=== PATIENT | female | born 1960 | race Caucasian/White ===

== ENCOUNTER 2020-07-11 12:15 | Emergency (ER) | payer MEDICAID ==
[~2020-07-11] VITALS: Ht 162.6 cm; Wt 54.0 kg
[2020-07-11 13:35] LABS: CHLORIDE 99 mEq/L (98-107)
[2020-07-11 13:39] LABS: INR 1.4; PROTHROMBIN TIME 14.9 sec (9.6-11.0)
[2020-07-11 13:41] LABS: MEAN CORPUSCULAR HEMOGLOBIN 21.6 pg (28.0-32.0); MEAN CORPUSCULAR VOLUME 65.9 fL (81.0-99.0); MEAN PLATELET VOLUME 6.5 fl (7.4-10.4); RED BLOOD CELL COUNT 2.64 mill/uL (4.2-5.4); RED CELL DISTRIBUTION WIDTH 19.3 % (11.6-14.6)
[2020-07-11 13:43] LABS: HEMATOCRIT. 17.4 % (36.0-48.0); HEMOGLOBIN. 5.7 g/dL (12.0-16.0); PLATELET 1083 x1000/uL (130-400)
[2020-07-11 15:02] LABS: PLATELET ESTIMATE MARKEDLY INCREASED
[2020-07-11] MEDS ORDERED: IOHEXOL-300 100 ML BOTTLE ONE (15:28)
[2020-07-11 15:45] VITALS: BP 131/75
== END 2020-07-11 15:55 | disposition home or self-care (01) ==
LOC: ER 12:42
DX: J18.9 Pneumonia, unspecified organism (principal); R91.8 Other nonspecific abnormal finding of lung field; D64.9 Anemia, unspecified; J44.9 Chronic obstructive pulmonary disease, unspecified; Z88.0 Allergy status to penicillin
CPT/HCPCS: 36415; 71045; 71260; 80053; 83880; 85025; 85610; 99285; Q9967

== ENCOUNTER 2021-06-04 20:24 | Inpatient (IN) | payer MEDICAID, OTHER ==
[~2021-06-04] VITALS: Ht 162.6 cm; Wt 67.3 kg
[~2021-06-04 20:24] MED LIST: AMLO5TAB88 PO; DICY20TA11 MT; ESCI20TA PO; GABA-290 MT; HYDR50SY PO; QUET50TA PO
[2021-06-04] MEDS ORDERED: AZITHROMYCIN 500MG/250ML 250 ML IV ONE (20:45)
[2021-06-04] MEDS ORDERED: CEFTRIAXONE 1 G PREMIX 50 ML IV ONE (20:45)
[2021-06-04] MEDS ORDERED: SODIUM CHLORIDE 0.9% 1000ML BAG (SEPSIS BOLUS) IV ONE (20:45)
[2021-06-04 21:01] LABS: HEMATOCRIT. 32.4 % (36.0-48.0); HEMOGLOBIN. 11.2 g/dL (12.0-16.0); MEAN CORPUSCULAR HEMOGLOBIN 27.3 pg (28.0-32.0); MEAN CORPUSCULAR VOLUME 79.2 fL (81.0-99.0); PLATELET 728 x1000/uL (130-400); RED BLOOD CELL COUNT 4.09 mill/uL (4.2-5.4); RED CELL DISTRIBUTION WIDTH 24.4 % (11.6-14.6)
[2021-06-04 21:07] LABS: CHLORIDE 99 mEq/L (98-107)
[2021-06-04 21:11] LABS: D-DIMER 0.83 mg/L FEU (<0.50); INR 1.4; PROTHROMBIN TIME 14.5 sec (9.6-11.0)
[2021-06-04] MEDS ORDERED: SODIUM CHLORIDE 0.9% 1,000 ML IV ONE (21:15)
[2021-06-04] MEDS ORDERED: DILTIAZEM HCL 5MG/ML 5ML VIAL IV ONE (21:30)
[2021-06-04 21:38] LABS: PLATELET ESTIMATE INCREASED
[2021-06-04] MEDS ORDERED: ONDANSETRON HCL 4MG/2ML INJ IV ONE (21:45)
[2021-06-04] MEDS ORDERED: METOCLOPRAMIDE HCL 10MG/2ML VIAL IV ONE (22:15)
[2021-06-04] MEDS ORDERED: MORPHINE SULFATE 4 MG/ML CPJ (NOT FOR IM USE) IV ONE (22:15)
[2021-06-05] VITALS (8 sets, daily range): BP systolic 93–139; BP diastolic 50–82
[2021-06-05] MEDS ORDERED: NALOXONE HCL 0.4MG/ML VIAL IV PRN (03:45)
[2021-06-05] MEDS ORDERED: IOHEXOL-350 100 ML BOTTLE ONE (04:43)
[2021-06-05] MEDS ORDERED: DILTIAZEM HCL 5MG/ML 5ML VIAL IV NR (06:00)
[2021-06-05] MEDS: ONDANSETRON HCL 4MG/2ML INJ IV PRN ×2 (06:14→19:10)
[2021-06-05] MEDS: DICYCLOMINE HCL 20MG TABLET PO SCH ×3 (08:18→17:15)
[2021-06-05] MEDS: AMLODIPINE 5MG TABLET PO SCH (08:18)
[2021-06-05] MEDS: HYDROCODONE/ACETAMINOPHEN 5/325MG TABLET PO PRN ×3 (08:27→20:59)
[2021-06-05 08:45] LABS: HEMATOCRIT. 30.7 % (36.0-48.0); MEAN CORPUSCULAR HEMOGLOBIN 25.6 pg (28.0-32.0); MEAN CORPUSCULAR VOLUME 78.7 fL (81.0-99.0); PLATELET 696 x1000/uL (130-400); RED CELL DISTRIBUTION WIDTH 23.9 % (11.6-14.6)
[2021-06-05 08:58] LABS: CHLORIDE 101 mEq/L (98-107)
[2021-06-05] MEDS ORDERED: ENOXAPARIN 40MG/0.4ML SYR SUBCUT SCH (09:00)
[2021-06-05 09:07] LABS: LDL CHOLESTEROL 67 mg/dL (5-100)
[2021-06-05 09:09] LABS: HDL CHOLESTEROL 39 mg/dL (40-59)
[2021-06-05] MEDS: SODIUM CHLORIDE 0.9% 1,000 ML IV SCH (10:58)
[2021-06-05] MEDS ORDERED: DILTIAZEM HCL 30MG TABLET PO SCH (11:00)
[2021-06-05] MEDS ORDERED: VANCOMYCIN 1 G PREMIX 200 ML IV SCH (14:15)
[2021-06-05] MEDS: DILTIAZEM HCL 60MG TABLET PO SCH (18:14)
[2021-06-05 19:23] LABS: PLATELET ESTIMATE INCREASED
[2021-06-05] MEDS: CEFTRIAXONE 1,000 MG in DEXTROSE 5% WATER 50 ML IV SCH (19:52)
[2021-06-05] MEDS ORDERED: CEFTRIAXONE 1,000 MG in DEXTROSE 5% WATER 50 ML IV SCH (20:00)
[2021-06-05] MEDS ORDERED: CEFTRIAXONE 500 MG in DEXTROSE 5% WATER 50 ML IV SCH (20:00)
[2021-06-05 20:22] LABS: CLARITY URINE CLEAR (CLEAR); COLOR URINE YELLOW (YELLOW); KETONES URINE NEGATIVE (NEGATIVE); LEUKOCYTE ESTERASE URINE NEGATIVE (NEGATIVE); NITRITE URINE NEGATIVE (NEGATIVE); OCCULT BLOOD URINE TRACE (NEGATIVE); PH URINE 6.5 (4.5-8.0); PROTEIN URINE 1+ (NEGATIVE); SPECIFIC GRAVITY URINE 1.028 (1.005-1.030); UROBILINOGEN URINE 0.2 E.U./dL (0.2-1.0)
[2021-06-05 20:49] LABS: *BENZODIAZEPINES SCREEN URINE NEGATIVE (NEGATIVE); *COCAINE SCREEN URINE NEGATIVE (NEGATIVE); METHADONE URINE SCREEN NEGATIVE (NEGATIVE); OPIATES URINE SCREEN PRESUMTIVE POSITIVE (NEGATIVE)
[2021-06-05 20:50] LABS: *AMPHETAMINES SCREEN URINE NEGATIVE (NEGATIVE); *BARBITURATES SCREEN URINE NEGATIVE (NEGATIVE); PHENCYCLIDINE URINE SCREEN NEGATIVE (NEGATIVE)
[2021-06-05 20:59] LABS: CANNABINOID URINE SCREEN PRESUMTIVE POSITIVE (NEGATIVE)
[2021-06-05] MEDS ORDERED: AZITHROMYCIN 250 MG in DEXT 5% WATER 250 ML IV SCH (21:00)
[2021-06-05] MEDS: AZITHROMYCIN 500MG in DEXTROSE 5% WATER 250ML IV SCH (21:08)
[2021-06-05] MEDS: QUETIAPINE FUMARATE 50MG TABLET PO SCH (21:08)
[2021-06-06] MEDS: IPRATROPIUM BROMIDE (0.02%) 0.5MG/2.5ML NEB HHN SCH ×3 (01:07→21:10)
[2021-06-06 02:00] VITALS: BP 102/69
[2021-06-06] MEDS: SODIUM CHLORIDE 0.9% 1,000 ML IV SCH ×2 (02:54→20:26)
[2021-06-06] MEDS: DILTIAZEM HCL 60MG TABLET PO SCH ×3 (03:06→21:38)
[2021-06-06] MEDS: HYDROCODONE/ACETAMINOPHEN 5/325MG TABLET PO PRN ×3 (03:06→20:19)
[2021-06-06 08:00] VITALS: BP 117/70
[2021-06-06] MEDS: DICYCLOMINE HCL 20MG TABLET PO SCH ×3 (08:56→17:29)
[2021-06-06] MEDS: AMLODIPINE 5MG TABLET PO SCH (08:56)
[2021-06-06 09:53] VITALS: BP 107/60
[2021-06-06 11:16] LABS: HEMATOCRIT. 25.8 % (36.0-48.0); HEMOGLOBIN. 8.5 g/dL (12.0-16.0); MEAN CORPUSCULAR HEMOGLOBIN 26.2 pg (28.0-32.0); MEAN CORPUSCULAR VOLUME 79.7 fL (81.0-99.0); MEAN PLATELET VOLUME 7.6 fl (7.4-10.4); PLATELET 591 x1000/uL (130-400); RED BLOOD CELL COUNT 3.24 mill/uL (4.2-5.4); RED CELL DISTRIBUTION WIDTH 24.1 % (11.6-14.6)
[2021-06-06 11:25] LABS: CHLORIDE 103 mEq/L (98-107)
[2021-06-06] MEDS ORDERED: SODIUM BICARBONATE 4% (2.4MEQ) 5ML VIAL IV ONE (11:51)
[2021-06-06 14:00] VITALS: BP 116/72
[2021-06-06] MEDS: BUDESONIDE 0.5MG/2ML NEB HHN SCH ×2 (14:34→21:10)
[2021-06-06 15:50] VITALS: BP 114/53
[2021-06-06 19:19] LABS: PLATELET ESTIMATE INCREASED
[2021-06-06] MEDS: CEFTRIAXONE 1,000 MG in DEXTROSE 5% WATER 50 ML IV SCH (20:17)
[2021-06-06] MEDS: QUETIAPINE FUMARATE 50MG TABLET PO SCH (21:01)
[2021-06-06] MEDS: AZITHROMYCIN 500MG in DEXTROSE 5% WATER 250ML IV SCH (21:01)
[2021-06-06] MEDS: ONDANSETRON HCL 4MG/2ML INJ IV PRN (21:01)
[2021-06-06 22:00] VITALS: BP_SYST 108; BP_SYST 135; BP_DIAS 62; BP_DIAS 82
[2021-06-07] VITALS (12 sets, daily range): BP systolic 108–137; BP diastolic 56–82
[2021-06-07] MEDS: DILTIAZEM HCL 60MG TABLET PO SCH (05:52)
[2021-06-07] MEDS: ONDANSETRON HCL 4MG/2ML INJ IV PRN ×2 (05:52→19:35)
[2021-06-07] MEDS: IPRATROPIUM BROMIDE (0.02%) 0.5MG/2.5ML NEB HHN SCH ×3 (07:34→21:04)
[2021-06-07] MEDS: BUDESONIDE 0.5MG/2ML NEB HHN SCH ×2 (07:35→21:04)
[2021-06-07 08:42] LABS: HEMATOCRIT. 24.2 % (36.0-48.0); HEMOGLOBIN. 8.1 g/dL (12.0-16.0); MEAN CORPUSCULAR VOLUME 77.9 fL (81.0-99.0); MEAN PLATELET VOLUME 7.5 fl (7.4-10.4); PLATELET 576 x1000/uL (130-400); RED CELL DISTRIBUTION WIDTH 23.9 % (11.6-14.6)
[2021-06-07 08:52] LABS: CHLORIDE 102 mEq/L (98-107)
[2021-06-07] MEDS: SODIUM CHLORIDE 0.9% 1,000 ML IV SCH (09:18)
[2021-06-07] MEDS: DICYCLOMINE HCL 20MG TABLET PO SCH ×3 (09:21→16:46)
[2021-06-07] MEDS: AMLODIPINE 5MG TABLET PO SCH (09:22)
[2021-06-07] MEDS: HYDROCODONE/ACETAMINOPHEN 5/325MG TABLET PO PRN ×2 (09:24→17:05)
[2021-06-07] MEDS: METHYLPREDNISOLONE SOD SUCC 40 MG/ML VIAL IV SCH ×2 (12:35→19:35)
[2021-06-07] MEDS: DILTIAZEM HCL 90MG TABLET PO SCH ×2 (14:24→21:34)
[2021-06-07] MEDS: CEFTRIAXONE 1,000 MG in DEXTROSE 5% WATER 50 ML IV SCH (19:35)
[2021-06-07] MEDS: QUETIAPINE FUMARATE 50MG TABLET PO SCH (20:10)
[2021-06-07] MEDS: AZITHROMYCIN 500MG in DEXTROSE 5% WATER 250ML IV SCH (20:10)
[2021-06-08] VITALS (11 sets, daily range): BP systolic 104–154; BP diastolic 60–86
[2021-06-08] MEDS: IPRATROPIUM BROMIDE (0.02%) 0.5MG/2.5ML NEB HHN SCH ×4 (01:57→19:47)
[2021-06-08] MEDS: METHYLPREDNISOLONE SOD SUCC 40 MG/ML VIAL IV SCH ×3 (04:43→20:11)
[2021-06-08] MEDS: SODIUM CHLORIDE 0.9% 1,000 ML IV SCH (04:44)
[2021-06-08 05:34] LABS: PLATELET ESTIMATE INCREASED
[2021-06-08] MEDS: DILTIAZEM HCL 90MG TABLET PO SCH ×3 (05:41→22:25)
[2021-06-08] MEDS: HYDROCODONE/ACETAMINOPHEN 5/325MG TABLET PO PRN ×3 (06:10→21:37)
[2021-06-08] MEDS: BUDESONIDE 0.5MG/2ML NEB HHN SCH (07:45)
[2021-06-08 08:54] LABS: HEMATOCRIT. 26.3 % (36.0-48.0); HEMOGLOBIN. 8.7 g/dL (12.0-16.0); MEAN CORPUSCULAR HEMOGLOBIN 25.9 pg (28.0-32.0); MEAN CORPUSCULAR VOLUME 78.1 fL (81.0-99.0); MEAN PLATELET VOLUME 7.3 fl (7.4-10.4); PLATELET 644 x1000/uL (130-400); RED BLOOD CELL COUNT 3.37 mill/uL (4.2-5.4); RED CELL DISTRIBUTION WIDTH 24.2 % (11.6-14.6)
[2021-06-08] MEDS: DICYCLOMINE HCL 20MG TABLET PO SCH ×4 (08:54→17:47)
[2021-06-08 09:02] LABS: CHLORIDE 105 mEq/L (98-107)
[2021-06-08 14:02] LABS: BG BASE EXCESS 3.5 mmol/L (-2.0-2.0); BG CARBOXYHEMOGLOBIN 0.6 % (0.5-1.5); BG DEOXYHEMOGLOBIN 9.7 % (0.0-5.0); BG FRACTION INSPIRED OXYGEN 28; BG HCO3 ACT 26.7 mmol/L (22.0-26.0); BG METHEMOGLOBIN 0.3 % (0.0-1.5); BG OXYGEN SATURATION 90.2 % (92.0-98.5); BG OXYHEMOGLOBIN 89.4 % (94.0-97.0); BG PCO2 35.3 mmHg (35.0-45.0); BG PH 7.497 (7.350-7.450); BG PO2 56.5 mmHg (75.0-100.0); BG SAMPLE SITE RIGHT RADIAL; BG TOTAL HEMOGLOBIN 9.6 g/dL (12.0-18.0); BG VENT MODE NASAL CANNULA
[2021-06-08 17:06] LABS: PLATELET ESTIMATE INCREASED
[2021-06-08] MEDS: QUETIAPINE FUMARATE 50MG TABLET PO SCH (20:11)
[2021-06-08] MEDS: CEFTRIAXONE 1,000 MG in DEXTROSE 5% WATER 50 ML IV SCH (20:11)
[2021-06-08] MEDS: ONDANSETRON HCL 4MG/2ML INJ IV PRN (20:15)
[2021-06-08] MEDS: AZITHROMYCIN 500MG in DEXTROSE 5% WATER 250ML IV SCH (21:37)
[2021-06-09] VITALS (11 sets, daily range): BP systolic 115–164; BP diastolic 71–99
[2021-06-09] MEDS: IPRATROPIUM BROMIDE (0.02%) 0.5MG/2.5ML NEB HHN SCH ×4 (02:15→21:12)
[2021-06-09] MEDS: METHYLPREDNISOLONE SOD SUCC 40 MG/ML VIAL IV SCH ×3 (04:08→20:21)
[2021-06-09] MEDS: DILTIAZEM HCL 90MG TABLET PO SCH ×3 (06:02→22:25)
[2021-06-09] MEDS: DICYCLOMINE HCL 20MG TABLET PO SCH ×3 (08:13→17:46)
[2021-06-09 08:29] LABS: HEMATOCRIT. 27.3 % (36.0-48.0); HEMOGLOBIN. 8.8 g/dL (12.0-16.0); MEAN CORPUSCULAR HEMOGLOBIN 25.4 pg (28.0-32.0); MEAN CORPUSCULAR VOLUME 78.6 fL (81.0-99.0); MEAN PLATELET VOLUME 7.1 fl (7.4-10.4); PLATELET 767 x1000/uL (130-400); RED BLOOD CELL COUNT 3.47 mill/uL (4.2-5.4); RED CELL DISTRIBUTION WIDTH 24.1 % (11.6-14.6)
[2021-06-09] MEDS: BUDESONIDE 0.5MG/2ML NEB HHN SCH (09:00)
[2021-06-09 09:21] LABS: CHLORIDE 106 mEq/L (98-107)
[2021-06-09 14:36] LABS: PLATELET ESTIMATE INCREASED
[2021-06-09] MEDS: HYDROCODONE/ACETAMINOPHEN 5/325MG TABLET PO PRN ×2 (14:48→22:56)
[2021-06-09] MEDS: CEFEPIME 2,000 MG in DEXT 5% WATER 100 ML IV SCH (18:22)
[2021-06-09] MEDS: ONDANSETRON HCL 4MG/2ML INJ IV PRN (18:30)
[2021-06-09] MEDS: AZITHROMYCIN 500MG in DEXTROSE 5% WATER 250ML IV SCH (22:24)
[2021-06-09] MEDS: QUETIAPINE FUMARATE 50MG TABLET PO SCH (22:25)
[2021-06-10] VITALS (9 sets, daily range): BP systolic 111–146; BP diastolic 55–91
[2021-06-10] MEDS: METHYLPREDNISOLONE SOD SUCC 40 MG/ML VIAL IV SCH ×2 (03:17→12:56)
[2021-06-10] MEDS: CEFEPIME 2,000 MG in DEXT 5% WATER 100 ML IV SCH ×3 (03:17→18:00)
[2021-06-10] MEDS: DILTIAZEM HCL 90MG TABLET PO SCH ×2 (05:17→12:57)
[2021-06-10 07:28] LABS: HEMATOCRIT. 26.2 % (36.0-48.0); HEMOGLOBIN. 8.5 g/dL (12.0-16.0); MEAN CORPUSCULAR HEMOGLOBIN 25.5 pg (28.0-32.0); MEAN CORPUSCULAR VOLUME 78.3 fL (81.0-99.0); MEAN PLATELET VOLUME 6.9 fl (7.4-10.4); PLATELET 804 x1000/uL (130-400); RED BLOOD CELL COUNT 3.34 mill/uL (4.2-5.4); RED CELL DISTRIBUTION WIDTH 24.6 % (11.6-14.6)
[2021-06-10] MEDS: DICYCLOMINE HCL 20MG TABLET PO SCH ×3 (08:25→17:00)
[2021-06-10] MEDS: IPRATROPIUM BROMIDE (0.02%) 0.5MG/2.5ML NEB HHN SCH ×2 (09:50→14:41)
[2021-06-10] MEDS ORDERED: LEVO750T46 MT (10:14)
[2021-06-10 10:33] LABS: CHLORIDE 105 mEq/L (98-107)
[2021-06-10] MEDS: ONDANSETRON HCL 4MG/2ML INJ IV PRN (10:44)
[2021-06-10] MEDS ORDERED: HYDROCODONE/ACETAMINOPHEN 5/325MG TABLET PO PRN (13:00)
[2021-06-10] MEDS ORDERED: NALOXONE HCL 0.4MG/ML VIAL IV PRN (13:15)
[2021-06-10] MEDS ORDERED: GABAPENTIN 300MG CAPSULE PO SCH (14:00)
[2021-06-10] MEDS ORDERED: P20 MT (14:30)
[2021-06-10 17:56] LABS: PLATELET ESTIMATE MARKEDLY INCREASED
== END 2021-06-10 19:00 | disposition home or self-care (01) | DRG 720 ==
LOC: ER 20:24 → 3WST 23:13
PROVIDERS: ADMIT Internal Medicine; ATTEND Internal Medicine
PROC: 0W9B3ZZ Drainage of Left Pleural Cavity, Percutaneous Approach (ICD-10-PCS; principal; 2021-06-06)
DX: A41.9 Sepsis, unspecified organism (principal); J96.01 Acute respiratory failure with hypoxia; J91.8 Pleural effusion in other conditions classified elsewhere; E43 Unspecified severe protein-calorie malnutrition; J18.9 Pneumonia, unspecified organism; C34.92 Malignant neoplasm of unspecified part of left bronchus or lung; C78.7 Secondary malignant neoplasm of liver and intrahepatic bile duct; F17.210 Nicotine dependence, cigarettes, uncomplicated; D50.9 Iron deficiency anemia, unspecified; I10 Essential (primary) hypertension; I16.0 Hypertensive urgency; Z20.822 Contact with and (suspected) exposure to COVID-19; R65.20 Severe sepsis without septic shock; J43.9 Emphysema, unspecified; R73.03 Prediabetes; R73.9 Hyperglycemia, unspecified; R59.0 Localized enlarged lymph nodes; Z79.899 Other long term (current) drug therapy; Z71.6 Tobacco abuse counseling; Z68.25 Body mass index [BMI] 25.0-25.9, adult; R00.0 Tachycardia, unspecified
CPT/HCPCS: 32555; 36415; 36600; 71045; 71275; 76700; 80048; 80053; 80061; 80305; 81003; 82040; 82375; 82378; 82805; 83036; 83605; 83615; 83880; 84145; 84443; 84484; 85025; 85379; 86850; 86900; 87426; 88108; 88312; 93005; 93306; 94640; 99291; J0456; J0692; J0696; J1650; J2270; J2405; J2765; J2920; J3490; J7030; J7040; J7060; J7626; Q9967

== ENCOUNTER 2022-01-07 10:02 | Emergency (ER) | payer MEDICAID, OTHER ==
[~2022-01-07] VITALS: Ht 170.2 cm; Wt 62.0 kg
[~2022-01-07 10:02] MED LIST changes: -AMLO5TAB88 PO; -HYDR50SY PO; +LEVO750T46 MT; +P20 MT
[2022-01-07] MEDS ORDERED: MORPHINE SULFATE 4 MG/ML CPJ (NOT FOR IM USE) IV STA (10:35)
[2022-01-07 10:52] LABS: HEMATOCRIT. 32.2 % (36.0-48.0); HEMOGLOBIN. 10.4 g/dL (12.0-16.0); MEAN CORPUSCULAR VOLUME 71.3 fL (81.0-99.0); MEAN PLATELET VOLUME 6.8 fl (7.4-10.4); PLATELET 887 x1000/uL (130-400); RED BLOOD CELL COUNT 4.51 mill/uL (4.2-5.4); RED CELL DISTRIBUTION WIDTH 18.4 % (11.6-14.6)
[2022-01-07 11:02] LABS: CHLORIDE 104 mEq/L (98-107)
[2022-01-07 11:21] LABS: PLATELET ESTIMATE INCREASED
[2022-01-07] MEDS ORDERED: VANCOMYCIN 1G PREMIX 200 ML IV ONE (11:30)
[2022-01-07] MEDS ORDERED: SODIUM CHLORIDE 0.9% 1000ML BAG (SEPSIS BOLUS) IV NR (11:30)
[2022-01-07] MEDS ORDERED: VANCOMYCIN 1GM PMX (XELLIA) 200 ML IV NR (12:00)
[2022-01-07] MEDS ORDERED: CEFEPIME 1,000 MG in DEXTROSE 5% WATER 50 ML IV SCH (12:00)
[2022-01-07] MEDS ORDERED: KETOROLAC 15MG/ML VIAL IV ONE (14:30)
[2022-01-07] MEDS ORDERED: ONDANSETRON HCL 4MG/2ML INJ IV ONE (14:30)
[2022-01-07 14:34] LABS: CLARITY URINE CLOUDY (CLEAR); COLOR URINE YELLOW (YELLOW); KETONES URINE 1+ (NEGATIVE); LEUKOCYTE ESTERASE URINE 1+ (NEGATIVE); NITRITE URINE NEGATIVE (NEGATIVE); OCCULT BLOOD URINE NEGATIVE (NEGATIVE); PH URINE 8.5 (4.5-8.0); PROTEIN URINE 2+ (NEGATIVE); SPECIFIC GRAVITY URINE 1.023 (1.005-1.030); UROBILINOGEN URINE 0.2 E.U./dL (0.2-1.0)
[2022-01-07 14:56] LABS: *AMPHETAMINES SCREEN URINE NEGATIVE (NEGATIVE); *BARBITURATES SCREEN URINE NEGATIVE (NEGATIVE); *BENZODIAZEPINES SCREEN URINE NEGATIVE (NEGATIVE); *COCAINE SCREEN URINE NEGATIVE (NEGATIVE); CANNABINOID URINE SCREEN PRESUMTIVE POSITIVE (NEGATIVE); METHADONE URINE SCREEN NEGATIVE (NEGATIVE); OPIATES URINE SCREEN PRESUMTIVE POSITIVE (NEGATIVE); PHENCYCLIDINE URINE SCREEN NEGATIVE (NEGATIVE)
[2022-01-07] MEDS ORDERED: ONDA4TAB5 MT (15:47)
[2022-01-07] MEDS ORDERED: MAG-55 MT (15:47)
[2022-01-07 17:10] VITALS: BP 159/96
== END 2022-01-07 17:39 | disposition home or self-care (01) ==
LOC: ER 10:26 → CANBEDREQ 16:52 → ER 17:39
DX: R19.7 Diarrhea, unspecified (principal); J44.1 Chronic obstructive pulmonary disease with (acute) exacerbation; J45.909 Unspecified asthma, uncomplicated; Z98.890 Other specified postprocedural states; Z88.0 Allergy status to penicillin
CPT/HCPCS: 36415; 71045; 74176; 80053; 80305; 80320; 81003; 83605; 83690; 85025; 87040; 87086; 96361; 96365; 96366; 96367; 96375; 99285; J0692; J1885; J2270; J2405; J3370; J7060; Z7610; G0480

== ENCOUNTER 2022-01-11 15:32 | Emergency (ER) | payer MEDICAID, OTHER ==
[~2022-01-11] VITALS: Ht 162.6 cm; Wt 63.0 kg
[~2022-01-11 15:32] MED LIST changes: +MAG-55 MT; +ONDA4TAB5 MT
[2022-01-11] MEDS ORDERED: MORPHINE SULFATE 4 MG/ML CPJ (NOT FOR IM USE) IV STA (16:05)
[2022-01-11] MEDS ORDERED: ONDANSETRON HCL 4MG/2ML INJ IV STA (16:05)
[2022-01-11] MEDS ORDERED: MAGNESIUM/ALUMINUM HYDROXIDE/SIMETHICONE 30ML UDC PO ONE (16:15)
[2022-01-11] MEDS ORDERED: FAMOTIDINE 20MG/2ML VIAL IV ONE (16:15)
[2022-01-11 16:22] LABS: HEMATOCRIT. 33.7 % (36.0-48.0); HEMOGLOBIN. 10.9 g/dL (12.0-16.0); MEAN CORPUSCULAR HEMOGLOBIN 23.3 pg (28.0-32.0); MEAN CORPUSCULAR VOLUME 71.8 fL (81.0-99.0); PLATELET 909 x1000/uL (130-400); RED BLOOD CELL COUNT 4.69 mill/uL (4.2-5.4); RED CELL DISTRIBUTION WIDTH 18.1 % (11.6-14.6)
[2022-01-11 16:27] LABS: CHLORIDE 100 mEq/L (98-107)
[2022-01-11 16:56] VITALS: BP 149/86
[2022-01-11] MEDS ORDERED: POTASSIUM CHLORIDE 20MEQ/PACKET PO ONE (17:15)
[2022-01-11 19:34] LABS: PLATELET ESTIMATE MARKEDLY INCREASED
== END 2022-01-11 17:39 | disposition home or self-care (01) ==
LOC: ER 15:32
DX: R10.13 Epigastric pain (principal); K44.9 Diaphragmatic hernia without obstruction or gangrene; R11.2 Nausea with vomiting, unspecified; R19.7 Diarrhea, unspecified; K21.9 Gastro-esophageal reflux disease without esophagitis; I10 Essential (primary) hypertension; J44.9 Chronic obstructive pulmonary disease, unspecified; J45.909 Unspecified asthma, uncomplicated; Z88.0 Allergy status to penicillin
CPT/HCPCS: 36415; 80053; 83690; 85025; 96374; 96375; 99284; J2270; J2405; J3490

== ENCOUNTER 2022-01-12 19:12 | Emergency (ER) | payer MEDICAID, OTHER ==
[~2022-01-12] VITALS: Ht 157.5 cm; Wt 59.0 kg
[2022-01-12 19:14] VITALS: BP 193/97
[2022-01-13] MEDS ORDERED: METO-293 MT (04:39)
[2022-01-13] MEDS ORDERED: FAMO-135 MT (04:39)
== END 2022-01-12 20:20 | disposition left against medical advice (07) ==
LOC: ER 19:12
DX: Z53.21 Procedure and treatment not carried out due to patient leaving prior to being seen by health care provider (principal)

== ENCOUNTER 2022-01-12 23:59 | Emergency (ER) | payer MEDICAID, OTHER ==
[~2022-01-12] VITALS: Ht 162.6 cm; Wt 68.0 kg
[2022-01-13 04:19] VITALS: BP 132/74
[2022-01-13] MEDS ORDERED: METOCLOPRAMIDE HCL 10MG/2ML VIAL IM ONE (04:30)
[2022-01-13] MEDS ORDERED: KETOROLAC 30MG/ML VIAL IM ONE (04:30)
[2022-01-13] MEDS ORDERED: METO-293 MT (04:39)
[2022-01-13] MEDS ORDERED: FAMO-135 MT (04:39)
== END 2022-01-13 04:56 | disposition home or self-care (01) ==
LOC: ER 23:59
DX: K44.9 Diaphragmatic hernia without obstruction or gangrene (principal); K21.9 Gastro-esophageal reflux disease without esophagitis; F32.A Depression, unspecified; I10 Essential (primary) hypertension; J44.9 Chronic obstructive pulmonary disease, unspecified; Z88.0 Allergy status to penicillin
CPT/HCPCS: 96372; 99284; J1885; J2765

== ENCOUNTER 2024-04-07 19:11 | Emergency (ER) | payer MEDICARE, MEDICAID ==
[~2024-04-07] VITALS: Ht 162.6 cm; Wt 59.0 kg
[~2024-04-07 19:11] MED LIST changes: -DICY20TA11 MT; +DICY20TA2 MT; +FAMO-135 MT; -LEVO750T46 MT; +LEVO750T68 MT; +METO-293 MT
[2024-04-07 19:14] VITALS: O2SAT 98
[2024-04-07 20:46] LABS: BASOPHILS % 0.6 % (0.0-2.0); EOSINOPHILS % 2.6 % (0.0-5.0); HEMATOCRIT. 32.9 % (36.0-48.0); HEMOGLOBIN. 10.4 g/dL (12.0-16.0); LYMPHOCYTES % 17.6 % (20.0-50.0); MEAN CORPUSCULAR HEMOGLOBIN 27.5 pg (28.0-32.0); MEAN CORPUSCULAR HGB CONC 31.8 g/dL (31.0-37.0); MEAN CORPUSCULAR VOLUME 86.5 fL (81.0-99.0); MEAN PLATELET VOLUME 7.3 fl (7.4-10.4); MONOCYTES % 9.7 % (2.0-8.0); NEUTROPHILS % 69.5 % (40.0-76.0); PLATELET 393 x1000/uL (130-400); RED CELL DISTRIBUTION WIDTH 19.9 % (11.6-14.6); WHITE BLOOD COUNT 11.5 x1000/uL (4.5-11.0)
[2024-04-07 20:52] LABS: CHLORIDE 108 mEq/L (98-107); POTASSIUM 4.2 mEq/L (3.5-5.1); SODIUM 136 mEq/L (136-145)
[2024-04-07 20:53] LABS: CALCIUM 8.7 mg/dL (8.7-10.4)
[2024-04-07 20:56] LABS: INR 0.9; PROTHROMBIN TIME 10.4 sec (9.6-11.0)
[2024-04-07 20:57] LABS: CARBON DIOXIDE 25 mEq/L (21-32)
[2024-04-07 20:58] LABS: CREATININE 0.7 mg/dL (0.6-1.0); GLUCOSE 110 mg/dL (70-105); UREA NITROGEN BLOOD 20 mg/dL (9-23)
[2024-04-07 21:00] LABS: CREATINE KINASE 130 IU/L (34-145); TROPONIN I HIGH SENSITIVITY 6 ng/L (3.0-34)
[2024-04-07 22:14] LABS: TROPONIN I HIGH SENSITIVITY 6 ng/L (3.0-34)
[2024-04-07] MEDS: IBUPROFEN 600MG TABLET PO ONE (23:02)
[2024-04-07] MEDS: ACETAMINOPHEN 325MG TABLET PO ONE (23:04)
[2024-04-07 23:10] VITALS: BP 133/82; PULSE 91; RESP 16; TEMP 98
[2024-04-07 23:30] LABS: TROPONIN I HIGH SENSITIVITY 5 ng/L (3.0-34)
== END 2024-04-07 23:40 | disposition home or self-care (01) ==
LOC: ER 19:11
DX: S80.812A Abrasion, left lower leg, initial encounter (principal); S80.811A Abrasion, right lower leg, initial encounter; J44.9 Chronic obstructive pulmonary disease, unspecified; F32.9 Major depressive disorder, single episode, unspecified; K21.9 Gastro-esophageal reflux disease without esophagitis; I10 Essential (primary) hypertension; Z87.01 Personal history of pneumonia (recurrent); Z79.899 Other long term (current) drug therapy; W18.39XA Other fall on same level, initial encounter; Y93.89 Activity, other specified; Y92.89 Other specified places as the place of occurrence of the external cause; Y99.8 Other external cause status
CPT/HCPCS: 36415; 71250; 80048; 82550; 84484; 85025; 99284

== ENCOUNTER 2024-04-19 07:33 | Emergency (ER) | payer MEDICARE, MEDICAID ==
[~2024-04-19] VITALS: Ht 162.6 cm; Wt 60.0 kg
[2024-04-19 07:54] VITALS: O2SAT 100
[2024-04-19 10:16] VITALS: BP 150/85; PULSE 97; RESP 18; TEMP 36.66960; O2SAT 100
== END 2024-04-19 10:27 | disposition home or self-care (01) ==
LOC: ER 07:33
DX: S52.502A Unspecified fracture of the lower end of left radius, initial encounter for closed fracture (principal); F12.10 Cannabis abuse, uncomplicated; I10 Essential (primary) hypertension; J44.1 Chronic obstructive pulmonary disease with (acute) exacerbation; F32.A Depression, unspecified; Z88.0 Allergy status to penicillin; Z79.899 Other long term (current) drug therapy; X58.XXXA Exposure to other specified factors, initial encounter; Y93.89 Activity, other specified; Y92.89 Other specified places as the place of occurrence of the external cause; Y99.8 Other external cause status
CPT/HCPCS: 29125; 99283